=== PATIENT | female | born 1945 | race African-American/Black ===

== ENCOUNTER 2016-12-18 20:58 | Inpatient (IN) | payer MEDICARE, MEDICAID ==
[~2016-12-18] VITALS: Ht 165.1 cm; Wt 106.7 kg
[~2016-12-18 20:58] MED LIST: ACET-2178 PO; ALBU2.5V13 IH; ASPI-1159 PO; BESI5DRO LEFTEYE; BIMA2.5D4 EACHEYE; BRIM.2 BOTHEYE; CLOP75TA33 PO; COR6 PO; DIPH25CA83 PO; DOCU250C69 PO; FERR-63 PO; FLUT10SP BOTHNSTRLS; FURO-151 PO; GABA-533 PO; INS7030; INSNOV; LEVO50TA PO; LIP40 PO; LOSA25TA3 PO; MECL12.584 PO; METO-293 PO; MULT-1146 PO; P20 PO; PANT40TA4; POTA20TA12 PO; PROT40 PO; SENN-22 PO; TIMO5DRO17 LEFTEYE
[2016-12-18 22:01] LABS: BASOPHILS % 1.3 % (0.0-2.0); EOSINOPHILS % 5.9 % (0.0-5.0); HEMATOCRIT. 30.1 % (36.0-48.0); HEMOGLOBIN. 9.7 g/dL (12.0-16.0); LYMPHOCYTES % 16.1 % (20.0-50.0); MEAN CORPUSCULAR HEMOGLOBIN 24.7 pg (28.0-32.0); MEAN CORPUSCULAR VOLUME 76.6 fL (81.0-99.0); MONOCYTES % 6.4 % (2.0-8.0); NEUTROPHILS % 70.3 % (40.0-76.0); PLATELET 388 x1000/uL (130-400); RED BLOOD CELL COUNT 3.92 mill/uL (4.2-5.4)
[2016-12-18 22:06] LABS: CHLORIDE 109 mEq/L (98-107); PROTHROMBIN TIME 10.1 sec (9.4-11.6)
[2016-12-18 22:11] LABS: CARBON DIOXIDE 24 mEq/L (21-32)
[2016-12-18 22:16] LABS: TROPONIN I 0.04 ng/mL (0.00-0.04)
[2016-12-18] MEDS ORDERED: FUROSEMIDE 40MG/4ML VIAL IV ONE (23:45)
[2016-12-18] MEDS ORDERED: ASPIRIN 81MG TABLET PO ONE (23:45)
[2016-12-19 09:18] VITALS: BP 124/39
[2016-12-19] MEDS ORDERED: MORPHINE SULFATE 4 MG/ML CPJ (NOT FOR IM USE) IV PRN (10:00)
[2016-12-19] MEDS ORDERED: ONDANSETRON HCL 4MG/2ML VIAL IV PRN (10:00)
[2016-12-19] MEDS ORDERED: LORAZEPAM 2MG/ML CPJ IV PRN (10:00)
[2016-12-19] MEDS: FUROSEMIDE 40MG/4ML VIAL IV SCH (11:33)
[2016-12-19] MEDS: ENOXAPARIN 40MG/0.4ML SYR SUBCUT SCH (11:33)
[2016-12-19] MEDS: HYDROCODONE/ACETAMINOPHEN 5/325MG TABLET PO PRN (11:34)
[2016-12-19] MEDS: THIAMINE HCL 100MG TABLET PO SCH (11:34)
[2016-12-19 12:00] VITALS: BP 159/48
[2016-12-19] MEDS ORDERED: DEXTROSE 50% WATER 50ML SYRINGE IV PRN (13:30)
[2016-12-19] MEDS ORDERED: CLONIDINE 0.1MG TABLET PO PRN (14:00)
[2016-12-19] MEDS ORDERED: CLONIDINE 0.2MG TABLET PO PRN (14:00)
[2016-12-19] MEDS: CARVEDILOL 3.125 MG TABLET PO SCH ×2 (15:10→20:44)
[2016-12-19] MEDS: CLOPIDOGREL 75MG TABLET PO SCH (15:10)
[2016-12-19 15:47] LABS: CLARITY URINE TURBID (CLEAR); COLOR URINE YELLOW (YELLOW); GLUCOSE URINE NEGATIVE (NEGATIVE); KETONES URINE NEGATIVE (NEGATIVE); LEUKOCYTE ESTERASE URINE 3+ (NEGATIVE); NITRITE URINE NEGATIVE (NEGATIVE); OCCULT BLOOD URINE 3+ (NEGATIVE); PROTEIN URINE 2+ (NEGATIVE); SPECIFIC GRAVITY URINE 1.014 (1.005-1.030); UROBILINOGEN URINE 0.2 E.U./dL (0.2-1.0)
[2016-12-19 16:00] VITALS: BP 129/57
[2016-12-19 16:13] LABS: *AMPHETAMINES SCREEN URINE NEGATIVE (NEGATIVE); *BARBITURATES SCREEN URINE NEGATIVE (NEGATIVE); *BENZODIAZEPINES SCREEN URINE NEGATIVE (NEGATIVE); *COCAINE SCREEN URINE NEGATIVE (NEGATIVE); CANNABINOID URINE SCREEN NEGATIVE (NEGATIVE); METHADONE URINE SCREEN NEGATIVE (NEGATIVE); OPIATES URINE SCREEN NEGATIVE (NEGATIVE); PHENCYCLIDINE URINE SCREEN NEGATIVE (NEGATIVE)
[2016-12-19] MEDS: BLOOD SUGAR DIAGNOSTIC STRIP TEST SCH ×2 (17:52→20:45)
[2016-12-19] MEDS: LEVOFLOXACIN 500MG PREMIX 100 ML IV SCH (18:09)
[2016-12-19] MEDS: INSULIN LISPRO 100 UNITS/ML SUBCUT SCH ×2 (18:15→20:59)
[2016-12-19 18:54] LABS: CREATINE KINASE MB FRACTION 1.3 ng/mL (0.5-3.6); TROPONIN I 0.03 ng/mL (0.00-0.04)
[2016-12-19 20:00] VITALS: BP 151/57
[2016-12-19] MEDS: ATORVASTATIN CALCIUM 40MG TABLET PO SCH (20:44)
[2016-12-20] VITALS: BP 150/53
[2016-12-20] MEDS: HYDROCODONE/ACETAMINOPHEN 5/325MG TABLET PO PRN (02:46)
[2016-12-20 04:00] VITALS: BP 143/50
[2016-12-20] MEDS: BLOOD SUGAR DIAGNOSTIC STRIP TEST SCH ×4 (07:17→20:55)
[2016-12-20] MEDS: INSULIN LISPRO 100 UNITS/ML SUBCUT SCH ×4 (07:17→20:55)
[2016-12-20 08:00] VITALS: BP 157/39
[2016-12-20] MEDS: ENOXAPARIN 40MG/0.4ML SYR SUBCUT SCH ×2 (08:04→09:19)
[2016-12-20] MEDS: CLOPIDOGREL 75MG TABLET PO SCH ×2 (08:36→09:18)
[2016-12-20] MEDS: FUROSEMIDE 40MG/4ML VIAL IV SCH (09:18)
[2016-12-20] MEDS: ASPIRIN 81MG EC TABLET PO SCH (09:18)
[2016-12-20] MEDS: THIAMINE HCL 100MG TABLET PO SCH (09:18)
[2016-12-20] MEDS: CARVEDILOL 3.125 MG TABLET PO SCH ×2 (09:19→20:54)
[2016-12-20] MEDS ORDERED: XALAO EACHEYE (11:06)
[2016-12-20] MEDS ORDERED: LANTUSUD SUBCUT (11:11)
[2016-12-20] MEDS ORDERED: FLUT1DIS2 IH (11:12)
[2016-12-20 12:00] VITALS: BP 152/45
[2016-12-20] MEDS: DOCUSATE SODIUM 100MG CAPSULE PO SCH ×2 (13:14→18:05)
[2016-12-20] MEDS: LOSARTAN POTASSIUM 25 MG TABLET PO SCH (13:14)
[2016-12-20] MEDS: HYDROCODONE/ACETAMINOPHEN 10/325MG TABLET PO PRN (13:15)
[2016-12-20] MEDS ORDERED: MAGNESIUM CITRATE 300ML SOLUTION PO NR (15:00)
[2016-12-20 15:30] LABS: BASOPHILS % 0.6 % (0.0-2.0); HEMATOCRIT. 29.8 % (36.0-48.0); HEMOGLOBIN. 9.8 g/dL (12.0-16.0); LYMPHOCYTES % 11.7 % (20.0-50.0); MEAN CORPUSCULAR HEMOGLOBIN 25.4 pg (28.0-32.0); MEAN CORPUSCULAR VOLUME 77.5 fL (81.0-99.0); MEAN PLATELET VOLUME 7.6 fl (7.4-10.4); MONOCYTES % 12.3 % (2.0-8.0); NEUTROPHILS % 71.4 % (40.0-76.0); PLATELET 324 x1000/uL (130-400); RED BLOOD CELL COUNT 3.85 mill/uL (4.2-5.4); RED CELL DISTRIBUTION WIDTH 17.5 % (11.6-14.6)
[2016-12-20 16:00] VITALS: BP 144/44
[2016-12-20] MEDS ORDERED: NA PHOS,M-B/NA PHOS,DI-BA ENEMA 118ML PR NR (16:00)
[2016-12-20 16:09] LABS: CARBON DIOXIDE 24 mEq/L (21-32); CHLORIDE 108 mEq/L (98-107); TROPONIN I 0.03 ng/mL (0.00-0.04)
[2016-12-20] MEDS: FLUCONAZOLE 100MG TABLET PO SCH (16:32)
[2016-12-20] MEDS: LEVOFLOXACIN 500MG PREMIX 100 ML IV SCH (18:05)
[2016-12-20] MEDS: METHYLPREDNISOLONE SOD SUCC 40 MG/ML VIAL IV SCH (18:05)
[2016-12-20 20:06] VITALS: BP 129/64
[2016-12-20] MEDS: ATORVASTATIN CALCIUM 40MG TABLET PO SCH (20:54)
[2016-12-20] MEDS: IPRATROPIUM/ALBUTEROL 0.5-3(2.5)MG/3ML NEB INH PRN (21:09)
[2016-12-20] MEDS: BUDESONIDE 0.5MG/2ML NEB HHN SCH (21:09)
[2016-12-21 00:02] VITALS: BP 148/43
[2016-12-21] MEDS: HYDROCODONE/ACETAMINOPHEN 10/325MG TABLET PO PRN (02:58)
[2016-12-21 04:00] VITALS: BP 132/50
[2016-12-21] MEDS: METHYLPREDNISOLONE SOD SUCC 40 MG/ML VIAL IV SCH (05:32)
[2016-12-21 06:03] LABS: HEMATOCRIT. 30.6 % (36.0-48.0); HEMOGLOBIN. 9.9 g/dL (12.0-16.0); MEAN CORPUSCULAR HEMOGLOBIN 25.1 pg (28.0-32.0); MEAN CORPUSCULAR VOLUME 77.9 fL (81.0-99.0); MEAN PLATELET VOLUME 7.2 fl (7.4-10.4); PLATELET 326 x1000/uL (130-400); RED BLOOD CELL COUNT 3.93 mill/uL (4.2-5.4); RED CELL DISTRIBUTION WIDTH 17.8 % (11.6-14.6)
[2016-12-21 08:00] VITALS: BP 133/48
[2016-12-21] MEDS: BLOOD SUGAR DIAGNOSTIC STRIP TEST SCH ×4 (08:22→20:42)
[2016-12-21] MEDS: BUDESONIDE 0.5MG/2ML NEB HHN SCH ×2 (08:25→20:05)
[2016-12-21] MEDS: IPRATROPIUM/ALBUTEROL 0.5-3(2.5)MG/3ML NEB INH PRN ×3 (08:25→20:05)
[2016-12-21] MEDS: CLOPIDOGREL 75MG TABLET PO SCH (08:49)
[2016-12-21] MEDS: ASPIRIN 81MG EC TABLET PO SCH (08:49)
[2016-12-21] MEDS: ENOXAPARIN 40MG/0.4ML SYR SUBCUT SCH (08:49)
[2016-12-21] MEDS: FUROSEMIDE 40MG/4ML VIAL IV SCH (08:49)
[2016-12-21] MEDS: DOCUSATE SODIUM 100MG CAPSULE PO SCH ×2 (08:49→17:07)
[2016-12-21] MEDS: THIAMINE HCL 100MG TABLET PO SCH (08:50)
[2016-12-21] MEDS: FLUCONAZOLE 100MG TABLET PO SCH (08:52)
[2016-12-21] MEDS: INSULIN LISPRO 100 UNITS/ML SUBCUT SCH ×4 (08:52→20:44)
[2016-12-21] MEDS: LOSARTAN POTASSIUM 25 MG TABLET PO SCH (08:53)
[2016-12-21] MEDS: CARVEDILOL 3.125 MG TABLET PO SCH ×2 (08:53→20:42)
[2016-12-21 12:00] VITALS: BP 111/45
[2016-12-21 12:01] LABS: PLATELET ESTIMATE NORMAL
[2016-12-21 16:00] VITALS: BP 129/43
[2016-12-21] MEDS: LEVOFLOXACIN 500MG TABLET PO SCH (17:07)
[2016-12-21 20:00] VITALS: BP 144/45
[2016-12-21] MEDS: ATORVASTATIN CALCIUM 40MG TABLET PO SCH (20:42)
[2016-12-22 00:08] VITALS: BP 105/46
[2016-12-22 04:00] VITALS: BP 139/46
[2016-12-22] MEDS: BLOOD SUGAR DIAGNOSTIC STRIP TEST SCH ×4 (06:15→21:03)
[2016-12-22 08:00] VITALS: BP 134/49
[2016-12-22] MEDS: BUDESONIDE 0.5MG/2ML NEB HHN SCH ×2 (08:28→20:24)
[2016-12-22] MEDS ORDERED: METHYLPREDNISOLONE SOD SUCC 40 MG/ML VIAL IV SCH (09:00)
[2016-12-22] MEDS: CLOPIDOGREL 75MG TABLET PO SCH (09:20)
[2016-12-22] MEDS: ENOXAPARIN 40MG/0.4ML SYR SUBCUT SCH (09:20)
[2016-12-22] MEDS: ASPIRIN 81MG EC TABLET PO SCH (09:20)
[2016-12-22] MEDS: FUROSEMIDE 40MG/4ML VIAL IV SCH (09:20)
[2016-12-22] MEDS: CARVEDILOL 3.125 MG TABLET PO SCH ×2 (09:21→21:08)
[2016-12-22] MEDS: DOCUSATE SODIUM 100MG CAPSULE PO SCH ×2 (09:21→17:53)
[2016-12-22] MEDS: LOSARTAN POTASSIUM 25 MG TABLET PO SCH (09:21)
[2016-12-22] MEDS: THIAMINE HCL 100MG TABLET PO SCH (09:21)
[2016-12-22] MEDS: INSULIN LISPRO 100 UNITS/ML SUBCUT SCH ×4 (09:28→21:09)
[2016-12-22] MEDS: FLUCONAZOLE 100MG TABLET PO SCH (09:36)
[2016-12-22 10:25] LABS: CHLORIDE 107 mEq/L (98-107)
[2016-12-22 10:34] LABS: CARBON DIOXIDE 28 mEq/L (21-32)
[2016-12-22 12:00] VITALS: BP 128/49
[2016-12-22 16:00] VITALS: BP 125/71
[2016-12-22] MEDS: LEVOFLOXACIN 500MG TABLET PO SCH (17:55)
[2016-12-22 20:00] VITALS: BP 134/60
[2016-12-22] MEDS: IPRATROPIUM/ALBUTEROL 0.5-3(2.5)MG/3ML NEB INH PRN (20:24)
[2016-12-22] MEDS: ATORVASTATIN CALCIUM 40MG TABLET PO SCH (21:07)
[2016-12-23 00:21] VITALS: BP 148/40
[2016-12-23 04:00] VITALS: BP 175/58
[2016-12-23] MEDS: BLOOD SUGAR DIAGNOSTIC STRIP TEST SCH ×2 (05:35→12:42)
[2016-12-23 07:26] LABS: BASOPHILS % 0.2 % (0.0-2.0); EOSINOPHILS % 0.1 % (0.0-5.0); HEMATOCRIT. 28.6 % (36.0-48.0); HEMOGLOBIN. 9.3 g/dL (12.0-16.0); LYMPHOCYTES % 14.5 % (20.0-50.0); MEAN CORPUSCULAR HEMOGLOBIN 25.1 pg (28.0-32.0); MEAN CORPUSCULAR VOLUME 77.3 fL (81.0-99.0); MEAN PLATELET VOLUME 7.6 fl (7.4-10.4); MONOCYTES % 9.9 % (2.0-8.0); NEUTROPHILS % 75.3 % (40.0-76.0); PLATELET 348 x1000/uL (130-400); RED CELL DISTRIBUTION WIDTH 17.4 % (11.6-14.6)
[2016-12-23] MEDS: INSULIN LISPRO 100 UNITS/ML SUBCUT SCH ×2 (07:55→13:59)
[2016-12-23 08:00] VITALS: BP 139/42
[2016-12-23] MEDS: BUDESONIDE 0.5MG/2ML NEB HHN SCH (08:29)
[2016-12-23] MEDS ORDERED: ENOXAPARIN 30MG/0.3ML SYR SUBCUT SCH (09:00)
[2016-12-23] MEDS ORDERED: PREDNISONE 20MG TABLET PO SCH (09:00)
[2016-12-23] MEDS: LOSARTAN POTASSIUM 25 MG TABLET PO SCH (09:30)
[2016-12-23] MEDS: THIAMINE HCL 100MG TABLET PO SCH (09:30)
[2016-12-23] MEDS: DOCUSATE SODIUM 100MG CAPSULE PO SCH (09:30)
[2016-12-23] MEDS: ASPIRIN 81MG EC TABLET PO SCH (09:30)
[2016-12-23] MEDS: CLOPIDOGREL 75MG TABLET PO SCH (09:30)
[2016-12-23] MEDS: CARVEDILOL 3.125 MG TABLET PO SCH (09:31)
[2016-12-23] MEDS: FUROSEMIDE 40MG/4ML VIAL IV SCH (09:31)
[2016-12-23] MEDS: FLUCONAZOLE 100MG TABLET PO SCH (09:36)
[2016-12-23 10:29] LABS: CHLORIDE 106 mEq/L (98-107)
[2016-12-23] MEDS ORDERED: NITROFURANTOIN 100MG M/M CAPSULE PO SCH (10:30)
[2016-12-23 10:42] LABS: CARBON DIOXIDE 28 mEq/L (21-32)
[2016-12-23 12:00] VITALS: BP 165/50
[2016-12-23 14:43] VITALS: BP 121/52
[2016-12-23 16:00] VITALS: BP 128/50
== END 2016-12-23 16:05 | disposition home or self-care (01) | DRG 871 ==
LOC: ER 21:15 → 7WST 12-19 00:53 → ENRESERV 12-19 06:30 → 7WST 12-19 21:30
PROVIDERS: ADMIT Internal Medicine Nephrology; ATTEND Hospitalist
DX: A41.9 Sepsis, unspecified organism (principal); J96.00 Acute respiratory failure, unspecified whether with hypoxia or hypercapnia; E43 Unspecified severe protein-calorie malnutrition; I50.43 Acute on chronic combined systolic (congestive) and diastolic (congestive) heart failure; I42.0 Dilated cardiomyopathy; E11.51 Type 2 diabetes mellitus with diabetic peripheral angiopathy without gangrene; J45.901 Unspecified asthma with (acute) exacerbation; N39.0 Urinary tract infection, site not specified; E66.9 Obesity, unspecified; I11.0 Hypertensive heart disease with heart failure; B96.89 Other specified bacterial agents as the cause of diseases classified elsewhere; D50.9 Iron deficiency anemia, unspecified; D63.8 Anemia in other chronic diseases classified elsewhere; E78.00 Pure hypercholesterolemia, unspecified; H54.7 Unspecified visual loss; I08.0 Rheumatic disorders of both mitral and aortic valves; I25.10 Atherosclerotic heart disease of native coronary artery without angina pectoris; I25.5 Ischemic cardiomyopathy; B96.20 Unspecified Escherichia coli [E. coli] as the cause of diseases classified elsewhere; I45.10 Unspecified right bundle-branch block; K59.00 Constipation, unspecified; Z68.39 Body mass index [BMI] 39.0-39.9, adult; Z79.02 Long term (current) use of antithrombotics/antiplatelets; Z79.82 Long term (current) use of aspirin; Z79.4 Long term (current) use of insulin; Z79.899 Other long term (current) drug therapy; I25.2 Old myocardial infarction; Z89.512 Acquired absence of left leg below knee; Z95.5 Presence of coronary angioplasty implant and graft; Z88.6 Allergy status to analgesic agent; Z86.73 Personal history of transient ischemic attack (TIA), and cerebral infarction without residual deficits
CPT/HCPCS: 36415; 71010; 80048; 80053; 80061; 80305; 81001; 82550; 82553; 82962; 83735; 83880; 84443; 84484; 85025; 85379; 85610; 87077; 87086; 87186; 93005; 93306; 93970; 94640; 94664; 96374; 99285; J1650; J1815; J1940; J1956; J2060; J2920; J7050; J7512; J7620; J7626; A4315